=== PATIENT | female | born 1955 | race Native Hawaiian/Other Pacific Islander ===

== ENCOUNTER 2016-08-16 09:40 | Outpatient (CLI) | payer OTHER ==
[~2016-08-16 09:40] MED LIST: ASA LOW STR81 MG PO; BENICAR40 MG PO; CYCL10TA35 PO; GLIM2TAB PO; HYDR25TA60 PO; JANUMET XR1 TA1 PO; MELO-13 PO; SIMV40TA57; SIMV40TA57 PO; UNITHROID50 MCG OR; VENLAFAXINE75 M2 PO
== END 2016-08-16 12:30 | disposition home or self-care (01) ==
LOC: RAD 09:40
DX: Z12.31 Encounter for screening mammogram for malignant neoplasm of breast (principal); Z13.820 Encounter for screening for osteoporosis
CPT/HCPCS: G0202-TC

== ENCOUNTER 2016-09-21 13:01 | Outpatient (CLI) | payer OTHER | END 2016-09-21 19:07 | disposition home or self-care (01) | LOC: MAMMO 13:01 | DX: R92.8 Other abnormal and inconclusive findings on diagnostic imaging of breast (principal) | CPT/HCPCS: G0206-TC ==